=== PATIENT | male | born 1975 | race Two or more races ===

== ENCOUNTER 2017-05-03 18:21 | Emergency (ER) | payer OTHER ==
[~2017-05-03] VITALS: Ht 182.9 cm; Wt 68.0 kg
[2017-05-03 18:30] VITALS: BP 120/93
== END 2017-05-03 19:50 | disposition home or self-care (01) ==
LOC: ER 18:24
DX: J40 Bronchitis, not specified as acute or chronic (principal)
CPT/HCPCS: A4606; Z7610